=== PATIENT | female | born 1950 | race Caucasian/White ===

== ENCOUNTER 2022-01-25 06:14 | Inpatient (IN) ==
[2022-01-25] MEDS ORDERED: CeFAZolin Syr 2,000MG/20 ML 2,000 MG/20 ML SYRINGE IVPB ONE (06:40)
[2022-01-25] MEDS ORDERED: Ringers Solution, Lactated 1,000 ML IVC SCH (06:45)
[2022-01-25] MEDS ORDERED: Albuterol 2.5 MG/3 ML NEBULIZER IH ONE (07:04)
[2022-01-25] MEDS ORDERED: Acetaminophen IV 1,000 MG/100 ML BAG IVPB ONE (07:04)
[2022-01-25] MEDS ORDERED: *HR* HYDROmorphone PF 0.5 MG/0.5 ML SYRINGE IVP PRN (07:07)
[2022-01-25] MEDS ORDERED: *HR* Rocuronium Bromide 50 MG/5 ML VIAL ONE (07:14)
[2022-01-25] MEDS ORDERED: *HR* Succinylcholine 200 MG/10 ML VIAL IVP ONE (07:14)
[2022-01-25] MEDS ORDERED: Lidocaine -MPF 2% 5 ML VIAL ONE ×2 (07:14→08:34)
[2022-01-25] MEDS ORDERED: Ondansetron 4 MG/2 ML VIAL ONE (07:14)
[2022-01-25] MEDS ORDERED: *HR* Midazolam HCl 2 MG/2 ML VIAL ONE (07:15)
[2022-01-25] MEDS ORDERED: *HR* FentaNYL (PF) 100 MCG/2 ML VIAL ONE (07:15)
[2022-01-25] MEDS ORDERED: Ketamine HCL *QUVA* 50mg (1mL) SYRINGE ONE (07:21)
[2022-01-25] MEDS ORDERED: *HR* HYDROMORPHONE 2 MG/ML VIAL ONE (09:17)
[2022-01-25] MEDS ORDERED: Naloxone 0.4 MG/ML INJ IVP PRN (11:42)
[2022-01-25] MEDS ORDERED: Ondansetron 4 MG/2 ML VIAL IVP PRN (11:42)
[2022-01-25] MEDS ORDERED: D5% in Water 1,000 ML IVC PRN (11:42)
[2022-01-25] MEDS ORDERED: Dextrose Gel 15 GM/37.5 ML TUBE PO PRN ×2 (11:42)
[2022-01-25] MEDS ORDERED: *HR* Dextrose 50 % in Water (Syg) 50 ML SYRINGE IVP PRN (11:42)
[2022-01-25] MEDS: Ketorolac 30 MG/ML VIAL IVP SCH ×3 (12:09→23:40)
[2022-01-25] MEDS: Insulin LISPRO 300 UNITS/3 ML VIAL SUBQ SCH ×3 (12:10→20:29)
[2022-01-25] MEDS: 0.9 % Sodium Chloride 1,000 ML IVC SCH ×2 (12:11→23:41)
[2022-01-25] MEDS: Gabapentin 300 MG CAPSULE PO SCH ×2 (12:37→20:27)
[2022-01-25] MEDS: Ipratropium/Albuterol Neb 3 ML IH SCH ×4 (15:26→23:02)
[2022-01-25] MEDS: *HR* Heparin 5,000 UNIT/ML VIAL SQ SCH ×2 (16:50→20:28)
[2022-01-25] MEDS: Budesonide/Formoterol 160/4.5 1 PUFF INH IH SCH (19:46)
[2022-01-25] MEDS: Sennosides/Docusate Sodium TABLET PO SCH (20:27)
[2022-01-25] MEDS: Famotidine 20 MG TABLET PO SCH (20:27)
[2022-01-25] MEDS: Insulin DETEMIR 100 UNIT/ML X5UNITS SUBQ SCH (21:00)
[2022-01-25] MEDS: lisinopriL 20 MG TABLET PO SCH (23:40)
[2022-01-26] MEDS: Ipratropium/Albuterol Neb 3 ML IH SCH ×5 (03:39→20:51)
[2022-01-26 05:27] LABS: Hematocrit 34.3 % (35.3-44.9); Hemoglobin 11.1 g/dL (11.5-15.4); Mean Corpuscular HGB Conc 32.4 g/dL (31.6-35.5); Mean Corpuscular Hemoglobin 29.3 pg (28.0-33.3); Mean Corpuscular Volume 90.5 fL (83.0-100.0); Mean Platelet Volume 10.7 fL (9.4-12.4); Platelet Count 239 K/mcL (140-400); Red Blood Count 3.79 M/mcL (3.82-4.97); Red Cell Distribution Width 15.1 % (11.5-14.5); White Blood Count 10.5 K/mcL (4.3-11.1)
[2022-01-26 05:43] LABS: BUN/Creatinine Ratio 21 (6-26); Blood Urea Nitrogen 16 mg/dL (8-23); Calcium 8.2 mg/dL (8.6-10.3); Carbon Dioxide 24 mEq/L (23-29); Chloride 109 mEq/L (98-107); Glucose 198 mg/dL (70-105); Magnesium 1.7 mg/dL (1.6-2.6); Osmolality,Calculated 293 (280-300); Potassium 4.4 mEq/L (3.5-5.1); Sodium 138 mEq/L (136-145); eGFR For African Americans > 60 (> 60); eGFR For Non-African Americans > 60 (> 60)
[2022-01-26] MEDS: Ketorolac 30 MG/ML VIAL IVP SCH ×3 (06:16→16:54)
[2022-01-26] MEDS: *HR* Heparin 5,000 UNIT/ML VIAL SQ SCH ×3 (06:16→21:43)
[2022-01-26] MEDS: Budesonide/Formoterol 160/4.5 1 PUFF INH IH SCH ×2 (07:29→20:51)
[2022-01-26] MEDS: Famotidine 20 MG TABLET PO SCH ×2 (08:11→20:14)
[2022-01-26] MEDS: lisinopriL 20 MG TABLET PO SCH ×2 (08:11→20:14)
[2022-01-26] MEDS: Sennosides/Docusate Sodium TABLET PO SCH ×2 (08:11→20:14)
[2022-01-26] MEDS: Gabapentin 300 MG CAPSULE PO SCH ×3 (08:11→20:14)
[2022-01-26] MEDS: Insulin LISPRO 300 UNITS/3 ML VIAL SUBQ SCH ×4 (08:12→20:13)
[2022-01-26] MEDS ORDERED: NON-FORMULARY MEDICATION 1 EACH EACH (Fluticasone/Umeclidin/Vilanter [Trelegy Ellipta 100- IH SCH (09:00)
[2022-01-26] MEDS: GlipiZIDE 5 MG TABLET PO SCH ×2 (09:46→16:55)
[2022-01-26] MEDS: Nicotine 21 MG PATCH.TD24 TD SCH (13:25)
[2022-01-26] MEDS: Insulin DETEMIR 100 UNIT/ML X5UNITS SUBQ SCH (20:14)
[2022-01-26] MEDS: *HR* HYDROcodone/Acet 5/325 mg TABLET PO PRN (21:43)
[2022-01-27] MEDS: Ipratropium/Albuterol Neb 3 ML IH SCH ×7 (00:16→23:56)
[2022-01-27] MEDS: Ketorolac 30 MG/ML VIAL IVP SCH ×4 (01:04→18:20)
[2022-01-27] MEDS: *HR* Heparin 5,000 UNIT/ML VIAL SQ SCH ×3 (05:37→22:45)
[2022-01-27] MEDS: Budesonide/Formoterol 160/4.5 1 PUFF INH IH SCH ×2 (07:42→20:40)
[2022-01-27] MEDS: GlipiZIDE 5 MG TABLET PO SCH ×2 (07:53→18:20)
[2022-01-27] MEDS: Gabapentin 300 MG CAPSULE PO SCH ×3 (07:53→19:44)
[2022-01-27] MEDS: Famotidine 20 MG TABLET PO SCH ×2 (07:53→19:44)
[2022-01-27] MEDS: lisinopriL 20 MG TABLET PO SCH ×2 (07:53→19:44)
[2022-01-27] MEDS: Sennosides/Docusate Sodium TABLET PO SCH ×2 (07:53→19:44)
[2022-01-27] MEDS: Insulin LISPRO 300 UNITS/3 ML VIAL SUBQ SCH ×3 (07:56→17:00)
[2022-01-27] MEDS: Nicotine 21 MG PATCH.TD24 TD SCH (07:58)
[2022-01-27] MEDS ORDERED: *HR* Dextrose 50 % in Water (Syg) 50 ML SYRINGE IVP PRN (09:41)
[2022-01-27] MEDS ORDERED: Dextrose Gel 15 GM/37.5 ML TUBE PO PRN ×2 (09:41)
[2022-01-27] MEDS ORDERED: D5% in Water 1,000 ML IVC PRN (09:41)
[2022-01-27] MEDS: Insulin DETEMIR 100 UNIT/ML X5UNITS SUBQ SCH (19:44)
[2022-01-27] MEDS ORDERED: Insulin LISPRO 300 UNITS/3 ML VIAL SUBQ SCH (21:00)
[2022-01-27] MEDS: *HR* HYDROcodone/Acet 5/325 mg TABLET PO PRN (22:45)
[2022-01-28] MEDS: Ketorolac 30 MG/ML VIAL IVP SCH ×2 (00:51→05:25)
[2022-01-28] MEDS: Ipratropium/Albuterol Neb 3 ML IH SCH ×3 (04:38→11:10)
[2022-01-28] MEDS: *HR* Heparin 5,000 UNIT/ML VIAL SQ SCH (05:25)
[2022-01-28 06:56] VITALS: TEMP 97.8
[2022-01-28 07:34] VITALS: O2SAT 96
[2022-01-28] MEDS: GlipiZIDE 5 MG TABLET PO SCH (08:06)
[2022-01-28] MEDS: Famotidine 20 MG TABLET PO SCH (08:06)
[2022-01-28] MEDS: lisinopriL 20 MG TABLET PO SCH (08:06)
[2022-01-28] MEDS: Nicotine 21 MG PATCH.TD24 TD SCH (08:07)
[2022-01-28] MEDS: Gabapentin 300 MG CAPSULE PO SCH (08:07)
[2022-01-28] MEDS: Sennosides/Docusate Sodium TABLET PO SCH (08:07)
[2022-01-28] MEDS: Insulin LISPRO 300 UNITS/3 ML VIAL SUBQ SCH ×2 (08:10→10:52)
[2022-01-28] MEDS: Budesonide/Formoterol 160/4.5 1 PUFF INH IH SCH (08:16)
[2022-01-28 08:18] VITALS: BP 170/82
[2022-01-28 09:28] VITALS: PULSE 87
[2022-01-28] MEDS ORDERED: *HR* Metformin 500 MG TABLET PO SCH (10:45)
== END 2022-01-28 14:58 | disposition home or self-care (01) | DRG 165 ==
LOC: SAMDAY 06:14 → 2NNU 11:41
PROVIDERS: ADMIT Thoracic Surgery (Cardiothoracic Vascular Surgery); ATTEND Thoracic Surgery (Cardiothoracic Vascular Surgery)